=== PATIENT | female | born 1965 | race African-American/Black ===

== ENCOUNTER 2017-01-17 19:39 | Emergency (ER) | payer OTHER ==
[~2017-01-17] VITALS: Ht 170.2 cm; Wt 88.0 kg
[2017-01-17 19:50] VITALS: BP 139/85
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
[2017-01-17] MEDS ORDERED: IBUPROFEN 600 MG TABLET. PO ONE (20:15)
[2017-01-17] MEDS ORDERED: NAPR500T PO (20:21)
[2017-01-17] MEDS ORDERED: CYCL10TA2 PO (20:21)
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
== END 2017-01-17 20:40 | disposition home or self-care (01) ==
LOC: ER 19:39
DX: M25.512 Pain in left shoulder (principal); Y32.XXXA Crashing of motor vehicle, undetermined intent, initial encounter; Y93.89 Activity, other specified; Y99.8 Other external cause status; Y92.89 Other specified places as the place of occurrence of the external cause
CPT/HCPCS: 73000; 99284

== ENCOUNTER 2021-02-17 19:40 | Observation (INO) | payer OTHER, MEDICARE ==
[~2021-02-17] VITALS: Ht 170.2 cm; Wt 78.5 kg
[~2021-02-17 19:40] MED LIST: CYCL10TA2 PO; NAPR-683 PO
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
[2021-02-17] MEDS ORDERED: CYCLOBENZAPRINE 10 MG TABLET. PO ONE (20:45)
[2021-02-17] MEDS ORDERED: IBUPROFEN 400 MG TABLET. PO ONE (20:45)
[2021-02-17] MEDS ORDERED: oxyCODONE/APAP 5/325 1 TAB TABLET PO ONE (20:45)
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
[2021-02-17] MEDS ORDERED: ASPIRIN 325 MG TABLET PO ONE (23:00)
[2021-02-17] MEDS ORDERED: ONDANSETRON PF 4 MG/2 ML VIAL. IVP PRN (23:00)
[2021-02-17 23:19] LABS: BASO # 0.1 x10^3/uL (0.0-0.2); BASO % 1 % (0-3); EOS # 0.4 x10^3/uL (0.0-0.7); EOS % 3 % (0-3); HEMATOCRIT 39.9 % (36.0-47.0); HEMOGLOBIN 13.4 g/dL (12.0-15.5); LYMPH % 28 % (24-48); MEAN CORPUSCULAR HEMOGLOBIN 30 pg (25-35); MEAN CORPUSCULAR HGB CONC 34 g/dL (31-37); MEAN CORPUSCULAR VOLUME 89 fL (79-100); MONO # 0.7 x10^3/uL (0.0-1.1); MONO % 7 % (0-9); NEUT # 6.6 x10^3/uL (1.8-7.7); NEUT % 61 % (31-73); PLATELET COUNT 226 x10^3/uL (140-400); RED BLOOD COUNT 4.51 x10^6/uL (3.50-5.40); RED CELL DISTRIBUTION WIDTH 13.9 % (11.5-14.5); WHITE BLOOD COUNT 10.8 x10^3/uL (4.0-11.0)
[2021-02-17 23:33] LABS: CALCIUM 8.9 mg/dL (8.5-10.1); GFR 69.4; POTASSIUM 3.8 mmol/L (3.5-5.1)
[2021-02-17 23:37] LABS: ALBUMIN 3.6 g/dL (3.4-5.0); ALBUMIN/GLOBULIN RATIO 1.2 (1.0-1.7); TOTAL BILIRUBIN 0.3 mg/dL (0.2-1.0); TOTAL PROTEIN 6.7 g/dL (6.4-8.2)
[2021-02-18 00:28] LABS: BILIRUBIN,URINE NEGATIVE (NEG); CLARITY,URINE CLEAR; COLOR,URINE YELLOW; NITRITE,URINE NEGATIVE (NEG); PROTEIN,URINE NEGATIVE (NEG-TRACE)
[2021-02-18 00:33] LABS: BACTERIA,URINE MODERATE /HPF (0-FEW); RBC,URINE OCC /HPF (0-2)
[2021-02-18 00:35] LABS: AMPHETAMINE/METHAMPHETAMINE NEG (NEG); BARBITURATES NEG (NEG); BENZODIAZEPINES NEG (NEG); CANNABINOIDS NEG (NEG); COCAINE NEG (NEG); METHADONE NEG (NEG); OPIATES NEG (NEG); PHENCYCLIDINE NEG (NEG)
[2021-02-18 01:21] VITALS: BP 160/87
--- NOTE | 2021-02-18 01:21 | EKG ---
[facility] [address] [place] [address] Test Date: 2021-02-17 Test Time: 22:41:07 Pat Name: BAKARI FORBES Department: Room: Gender: F [employer]: : 1965 Requested By: DANIKA HERNADEZ Order Number: [id number] Reading MD: Measurements Intervals [place] Rate: 71 P: 46 KS: 160 QRS: 41 QRSD: 80 T: 23 QT: 388 QTc: 422 Interpretive Statements SINUS RHYTHM NORMAL ECG RI6.02 No previous ECG available for comparison
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
[2021-02-18] MEDS ORDERED: FEXO180T81 PO (01:53)
[2021-02-18] MEDS ORDERED: MELA5TAB11 SL (01:53)
[2021-02-18] MEDS ORDERED: IBUP1TAB12 PO (01:53)
[2021-02-18] MEDS ORDERED: MULT-245 PO (01:53)
[2021-02-18 02:08] LABS: BASO # 0.1 x10^3/uL (0.0-0.2); BASO % 1 % (0-3); EOS # 0.3 x10^3/uL (0.0-0.7); EOS % 3 % (0-3); HEMATOCRIT 39.1 % (36.0-47.0); HEMOGLOBIN 13.1 g/dL (12.0-15.5); LYMPH # 2.8 x10^3/uL (1.0-4.8); LYMPH % 27 % (24-48); MEAN CORPUSCULAR HEMOGLOBIN 30 pg (25-35); MEAN CORPUSCULAR HGB CONC 34 g/dL (31-37); MEAN CORPUSCULAR VOLUME 88 fL (79-100); MONO # 0.5 x10^3/uL (0.0-1.1); MONO % 5 % (0-9); NEUT # 6.7 x10^3/uL (1.8-7.7); NEUT % 65 % (31-73); PLATELET COUNT 220 x10^3/uL (140-400); RED BLOOD COUNT 4.44 x10^6/uL (3.50-5.40); RED CELL DISTRIBUTION WIDTH 14.2 % (11.5-14.5); WHITE BLOOD COUNT 10.4 x10^3/uL (4.0-11.0)
[2021-02-18 02:20] LABS: ALBUMIN 3.5 g/dL (3.4-5.0); ALBUMIN/GLOBULIN RATIO 1.1 (1.0-1.7); CALCIUM 8.9 mg/dL (8.5-10.1); GFR 69.4; POTASSIUM 3.7 mmol/L (3.5-5.1); TOTAL BILIRUBIN 0.4 mg/dL (0.2-1.0); TOTAL PROTEIN 6.7 g/dL (6.4-8.2)
[2021-02-18 04:30] VITALS: BP 140/85
[2021-02-18 05:20] LABS: CHOLESTEROL/HDL RATIO 4.4
[2021-02-18 07:24] VITALS: BP 126/82
--- NOTE | 2021-02-18 11:10 | DISCH ---
DISCHARGE INSTRUCTIONS Condition on Discharge Condition on Discharge: Stable Activity After Discharge Activity Instructions for Disc: Resume previous activity Contacting the DR. after DC Call your doctor for: If your condition worsens ROSIO BOYCE MD Feb 18, 2021 11:10
[2021-02-18 11:14] VITALS: BP 116/75
--- NOTE | 2021-02-18 11:37 | PDOC ---
GENERAL General: Same day summary [id number] VITAL SIGNS Vital Signs/I&O: Vital Signs Date Time Temp Pulse Resp B/P (MAP) Pulse Ox O2 Delivery O2 Flow Rate FiO2 02/18/21 11:14 98.2 79 18 116/75 (89) 98 Room Air 98.2 I & O 02/17/21 02/17/21 02/18/21 15:00 23:00 07:00 Intake Total 0 ml Balance 0 ml ALLERGIES Allergies: Allergies Coded Allergies Type Severity Reaction Last Updated Verified No Known Drug Allergies 01/17/17 No MEDS Medications: Current Medications Medications (Trade) Dose Ordered Sig/Fiordaliza Route PRN Reason Start Time Stop Time Status Last Admin Dose Admin Oxycodone/ Acetaminophen (Percocet 5/325) 1 tab 1X ONCE PO 02/17/21 20:45 02/17/21 20:46 DC 02/17/21 20:36 Ibuprofen (Motrin) 800 mg 1X ONCE PO 02/17/21 20:45 02/17/21 20:46 DC 02/17/21 20:36 Cyclobenzaprine HCl (Flexeril) 10 mg 1X ONCE PO 02/17/21 20:45 02/17/21 20:46 DC 02/17/21 20:36 Aspirin (Gena Aspirin) 325 mg 1X ONCE PO 02/17/21 23:00 02/17/21 23:01 DC 02/17/21 22:38 LAB Lab: Laboratory Tests Test 02/17/21 22:40 02/17/21 23:12 02/18/21 00:21 02/18/21 01:50 SARS-CoV-2 Antigen (Rapid) Negative (NEGATIVE) White Blood Count 10.8 x10^3/uL (4.0-11.0) 10.4 x10^3/uL (4.0-11.0) Red Blood Count 4.51 x10^6/uL (3.50-5.40) 4.44 x10^6/uL (3.50-5.40) Hemoglobin 13.4 g/dL (12.0-15.5) 13.1 g/dL (12.0-15.5) Hematocrit 39.9 % (36.0-47.0) 39.1 % (36.0-47.0) Mean Corpuscular Volume 89 fL (79-100) 88 fL (79-100) Mean Corpuscular Hemoglobin 30 pg (25-35) 30 pg (25-35) Mean Corpuscular Hemoglobin Concent 34 g/dL (31-37) 34 g/dL (31-37) Red Cell Distribution Width 13.9 % (11.5-14.5) 14.2 % (11.5-14.5) Platelet Count 226 x10^3/uL (140-400) 220 x10^3/uL (140-400) Neutrophils (%) (Auto) 61 % (31-73) 65 % (31-73) Lymphocytes (%) (Auto) 28 % (24-48) 27 % (24-48) Monocytes (%) (Auto) 7 % (0-9) 5 % (0-9) Eosinophils (%) (Auto) 3 % (0-3) 3 % (0-3) Basophils (%) (Auto) 1 % (0-3) 1 % (0-3) Neutrophils # (Auto) 6.6 x10^3/uL (1.8-7.7) 6.7 x10^3/uL (1.8-7.7) Lymphocytes # (Auto) 3.0 x10^3/uL (1.0-4.8) 2.8 x10^3/uL (1.0-4.8) Monocytes # (Auto) 0.7 x10^3/uL (0.0-1.1) 0.5 x10^3/uL (0.0-1.1) Eosinophils # (Auto) 0.4 x10^3/uL (0.0-0.7) 0.3 x10^3/uL (0.0-0.7) Basophils # (Auto) 0.1 x10^3/uL (0.0-0.2) 0.1 x10^3/uL (0.0-0.2) Sodium Level 141 mmol/L (136-145) 141 mmol/L (136-145) Potassium Level 3.8 mmol/L (3.5-5.1) 3.7 mmol/L (3.5-5.1) Chloride Level 105 mmol/L (98-107) 106 mmol/L (98-107) Carbon Dioxide Level 28 mmol/L (21-32) 27 mmol/L (21-32) Anion Gap 8 (6-14) 8 (6-14) Blood Urea Nitrogen 15 mg/dL (7-20) 13 mg/dL (7-20) Creatinine 1.0 mg/dL (0.6-1.0) 1.0 mg/dL (0.6-1.0) Estimated GFR (Cockcroft-Gault) 69.4 69.4 BUN/Creatinine Ratio 15 (6-20) 13 (6-20) Glucose Level 104 mg/dL (70-99) H 101 mg/dL (70-99) H Calcium Level 8.9 mg/dL (8.5-10.1) 8.9 mg/dL (8.5-10.1) Total Bilirubin 0.3 mg/dL (0.2-1.0) 0.4 mg/dL (0.2-1.0) Aspartate Amino Transferase (AST) 11 U/L (15-37) L 15 U/L (15-37) Alanine Aminotransferase (ALT) 23 U/L (14-59) 27 U/L (14-59) Alkaline Phosphatase 130 U/L (46-116) H 129 U/L (46-116) H Troponin I Quantitative < 0.017 ng/mL (0.000-0.055) < 0.017 ng/mL (0.000-0.055) LB-Kci-Y-Type Natriuretic Peptide 30 pg/mL (0-124) Total Protein 6.7 g/dL (6.4-8.2) 6.7 g/dL (6.4-8.2) Albumin 3.6 g/dL (3.4-5.0) 3.5 g/dL (3.4-5.0) Albumin/Globulin Ratio 1.2 (1.0-1.7) 1.1 (1.0-1.7) Thyroid Stimulating Hormone (TSH) 4.982 uIU/mL (0.358-3.74) H Urine Collection Type Unknown Urine Color Yellow Urine Clarity Clear Urine pH 7.0 (<5.0-8.0) Urine Specific [place] 1.015 (1.000-1.030) Urine Protein Negative mg/dL (NEG-TRACE) Urine Glucose (UA) Negative mg/dL (NEG) Urine Ketones (Stick) Negative mg/dL (NEG) Urine Blood Negative (NEG) Urine Nitrite Negative (NEG) Urine Bilirubin Negative (NEG) Urine Urobilinogen Dipstick 1.0 mg/dL (0.2 mg/dL) Urine Leukocyte Esterase Trace (NEG) Urine RBC Occ /HPF (0-2) Urine WBC 1-4 /HPF (0-4) Urine Squamous Epithelial Cells Few /LPF Urine Bacteria Moderate /HPF (0-FEW) Urine Mucus Slight /LPF Urine Opiates Screen Neg (NEG) Urine Methadone Screen Neg (NEG) Urine Barbiturates Neg (NEG) Urine Phencyclidine Screen Neg (NEG) Urine Amphetamine/Methamphetamine Neg (NEG) Urine Benzodiazepines Screen Neg (NEG) Urine Cocaine Screen Neg (NEG) Urine Cannabinoids Screen Neg (NEG) Urine Ethyl Alcohol Neg (NEG) Triglycerides Level 47 mg/dL (0-150) Cholesterol Level 194 mg/dL (0-200) LDL Cholesterol, Calculated 141 mg/dL (0-100) H VLDL Cholesterol, Calculated 9 mg/dL (0-40) Non-HDL Cholesterol Calculated 150 mg/dL (0-129) H HDL Cholesterol 44 mg/dL (40-60) Cholesterol/HDL Ratio 4.4 Laboratory Tests 02/17/21 23:12 02/18/21 01:50 Laboratory Tests 02/17/21 23:12 02/18/21 01:50 Justifications for Admission Other Justification ROSIO BOYCE MD Feb 18, 2021 11:37
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
[2021-02-18 15:04] VITALS: BP 122/74
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
--- NOTE | 2021-02-18 17:40 | NUR ---
Discharge Note: BAKARI FORBES Discharge instructions and discharge home medications reviewed with Patient and a copy given. All questions have been answered and understanding verbalized. Pt sent in stable condition via wheelchair with spouse and family member
== END 2021-02-18 17:42 | disposition home or self-care (01) ==
LOC: ER 19:40 → 6 SOUTH 22:26
PROVIDERS: ADMIT Student in an Organized Health Care Education/Training Program; ATTEND Student in an Organized Health Care Education/Training Program
DX: I63.9 Cerebral infarction, unspecified (principal); Z20.822 Contact with and (suspected) exposure to COVID-19; S13.4XXA Sprain of ligaments of cervical spine, initial encounter; S20.212A Contusion of left front wall of thorax, initial encounter; S86.919A Strain of unspecified muscle(s) and tendon(s) at lower leg level, unspecified leg, initial encounter; V89.2XXA Person injured in unspecified motor-vehicle accident, traffic, initial encounter; W22.10XA Striking against or struck by unspecified automobile airbag, initial encounter; Y92.410 Unspecified street and highway as the place of occurrence of the external cause; Z82.49 Family history of ischemic heart disease and other diseases of the circulatory system
CPT/HCPCS: 36415; 70450; 71101; 73562; 80053; 80061; 80307; 81001; 83880; 84443; 84484; 85025; 87086; 87426; 93005; 99285; G0378; U0003; U0005; G0379